=== PATIENT | female | born 1955 | race Caucasian/White ===

== ENCOUNTER 2020-07-11 01:30 | Emergency (ER) | payer MEDICARE, OTHER ==
[2020-07-11 01:58] LABS: BASOPHIL 0.8 % (0-2); EOSINOPHIL 3.4 % (0-7); HCT 46.3 % (37.0-47.0); HGB 15.3 g/dl (12.5-16.0); MCH 31.5 pg (25.0-31.0); MCV 95.3 fL (78.0-100.0); MONOCYTE 8.3 % (0-12); MPV 9.6 fL (6.0-9.5); NEUTROPHIL 62.2 % (41-80); NRBC 0; PLT 286 K/uL (150-400); RBC 4.86 M/uL (4.20-5.40); RDW 13.4 % (11.5-14.0)
[2020-07-11 02:17] LABS: BILIRUBIN - TOTAL 0.2 mg/dL (0.2-1.0); BUN/CREAT RATIO (CALC) 26.9 RATIO; CREATININE 0.67 mg/dL (0.51-0.95); GLOBULIN (CALCULATION) 3.4 g/dL; POTASSIUM 2.9 mmol/L (3.5-5.1); TOTAL PROTEIN 7.4 g/dL (6.4-8.2)
== END 2020-07-11 06:59 | disposition home or self-care (01) ==
LOC: FER 01:30
PROVIDERS: Emergency Medicine Emergency Medical Services
DX: F10.129 Alcohol abuse with intoxication, unspecified (principal); E87.6 Hypokalemia; Z88.5 Allergy status to narcotic agent; Y90.8 Blood alcohol level of 240 mg/100 ml or more
CPT/HCPCS: 36415; 80053; 85025; 93005; G0480; J3411; J3480; J7030